=== PATIENT | male | born 1980 | race Caucasian/White ===

== ENCOUNTER 2017-11-23 13:34 | Emergency (ER) | payer SELFPAY ==
[2017-11-23 13:50] VITALS: BP 140/80
--- NOTE | 2017-11-23 14:49 | RADIOLOGY REPORT (SQ) ---
EXAM DESCRIPTION: ANKLE LEFT COMPLETE COMPLETED DATE/TIME: 11/23/2017 2:35 pm REASON FOR STUDY: left ankle injury 10days ago, lateral swelling COMPARISON: None. NUMBER OF VIEWS: Three views. TECHNIQUE: AP, lateral, and oblique radiographic images acquired of the left ankle. LIMITATIONS: None. FINDINGS: MINERALIZATION: Normal BONES: There is cortical irregularity in cortical interruption at the level of the distal tibia later ally in involving the distal fibula consistent with fractures. No other evidence for fracture is see n. JOINTS: No effusions. SOFT TISSUES: There is associated soft tissue swelling OTHER: No other significant finding. IMPRESSION: Fractures of the distal tibia and fibula as noted above TECHNICAL DOCUMENTATION: JOB ID: [id number] [employer] All Rights Reserved Reading location - IP/workstation name: [email or web address]
[2017-11-23] MEDS ORDERED: OXYCODONE-ACETAMINOPHEN 5-325 MG TABLET PO ONE (15:03)
--- NOTE | 2017-11-23 15:03 | ER Document Report ---
HPI - HPI Patient complains to provider of: left ankle pain Onset: Other - injury occurred 8 days ago. Quality of pain: Throbbing Severity: Severe Pain Level: 5 Context: States he jumped off a chair 8 days ago injuring his left ankle. Swelling has gone down some but is very painful to put any weight on that foot. Patient has not sought prior evaluation Associated Symptoms: None Exacerbated by: Movement, Walking Relieved by: Denies Similar symptoms previously: No Recently seen / treated by doctor: No - ROS ROS below otherwise negative: Yes Systems Reviewed and Negative: Yes All other systems reviewed and negative - NEURO Neurology: DENIES: Headache - CARDIOVASCULAR Cardiovascular: DENIES: Chest pain - RESPIRATORY Respiratory: DENIES: Trouble Breathing - GASTROINTESTINAL Gastrointestinal: DENIES: Abdominal Pain - MUSCULOSKELETAL Musculoskeletal: REPORTS: Extremity pain Notes: Left ankle - DERM Skin Color: Ecchymosis Skin Problems: None Past Medical History - General Information source: Patient - Social History Smoking Status: Current Every Day Smoker Cigarette use (# per day): Yes Frequency of alcohol use: Occasional Drug Abuse: None Lives with: Family Family History: Reviewed & Not Pertinent Neurological Medical History: Reports: Hx Seizures Psychiatric Medical History: Reports: Hx Anxiety, Hx Bipolar Disorder, Hx Depression Past Surgical History: Reports: Hx Oral Surgery, Hx Orthopedic Surgery - Immunizations Immunizations up to date: Yes Hx Diphtheria, Pertussis, Tetanus Vaccination: Yes Vertical Provider Document - CONSTITUTIONAL Agree With Documented VS: Yes Exam Limitations: No Limitations General Appearance: WD/WN, No Apparent Distress - INFECTION CONTROL TRAVEL OUTSIDE OF THE [place] IN LAST 30 DAYS: No - HEENT HEENT: Atraumatic, Normocephalic - RESPIRATORY Respiratory: Breath Sounds Normal, No Respiratory Distress - CARDIOVASCULAR Cardiovascular: Regular Rate, Regular Rhythm - MUSCULOSKELETAL/EXTREMETIES Musculoskeletal/Extremeties: Tender, Edema - Mild edema remains to left ankle. Bruising faint, Eccymosis Notes: Neurovascular and sensation is intact to left foot. - NEURO Level of Consciousness: Awake, Alert, Appropriate - DERM Integumentary: Warm, Dry Course - Re-evaluation Re-evalutation: 11/23/17 15:43 X-ray shows distal tib-fib fracture and this was discussed with the patient. Dr. Barron consulted and agrees with plan of splinting and following up with his office on Sunday morning patient is to call to schedule appointment. Relayed through operating room nurse as he was in surgery. - Vital Signs Vital signs: Temp Pulse Resp BP Pulse Ox 98.6 F 103 H 18 140/80 H 99 11/23/17 13:49 11/23/17 13:49 11/23/17 13:49 11/23/17 13:49 11/23/17 13:49 Procedures - Immobilization Left Ankle Pre-Proc Neuro Vasc Exam: Normal Immobilizer type: Short Leg Posterior - Crutches ordered in error, as patient already has them with him. Performed by: PCT Post-Proc Neuro Vasc Exam: Normal Alignment checked and good: Yes Discharge - Discharge Clinical Impression: Fracture tibia/fibula Qualifiers: Encounter type: initial encounter Fracture type: closed Laterality: left Qualified Code(s): S82.202A - Unspecified fracture of shaft of left tibia, initial encounter for closed fracture; S82.402A - Unspecified fracture of shaft of left fibula, initial encounter for closed fracture; S82.402A - Unspecified fracture of shaft of left fibula, initial encounter for closed fracture Condition: Good Disposition: HOME, SELF-CARE Instructions: Use of Crutches ([facility]), Ice & Elevation ([facility]), Oral Narcotic Medication ([facility]) Additional Instructions: OTC ibuprofen 3 times a day with food for pain, [place]-as needed Ice and elevate left Consulted Dr. Barron, orthopedics, who advised you call his office Sunday morning for appointment. Number has been provided on your paperwork return as needed Prescriptions: Hydrocodone/Acetaminophen [[place] 5-325 mg Tablet] 1 tab PO PRN PRN #15 tablet PRN Reason: Referrals: SERG BARRON, [ACTIVE STAFF] - Follow up as needed
== END 2017-11-23 16:00 | disposition home or self-care (01) ==
LOC: ER 13:34
PROC: 2W3RX1Z Immobilization of Left Lower Leg using Splint (ICD-10-PCS; principal; 2017-11-23)
DX: S82.402A Unspecified fracture of shaft of left fibula, initial encounter for closed fracture (principal); S82.202A Unspecified fracture of shaft of left tibia, initial encounter for closed fracture; M25.572 Pain in left ankle and joints of left foot; M79.89 Other specified soft tissue disorders; X58.XXXA Exposure to other specified factors, initial encounter; Y93.39 Activity, other involving climbing, rappelling and jumping off; F17.210 Nicotine dependence, cigarettes, uncomplicated
CPT/HCPCS: 99283

== ENCOUNTER 2020-09-03 03:37 | Emergency (ER) | payer MEDICAID ==
[2020-09-03 03:49] VITALS: BP 111/68
[2020-09-03 04:45] LABS: ABSOLUTE BASOPHILS # (AUTO) 0.1 10^3/uL (0.0-0.2); ABSOLUTE EOSINOPHILS # (AUTO) 0.2 10^3/uL (0.0-0.6); ABSOLUTE MONOCYTES (AUTO) 0.7 10^3/uL (0.1-1.4); ABSOLUTE NEUT (AUTO) 6.1 10^3/uL (1.7-8.2); BASOPHILS % (AUTO) 1.1 % (0-2); EOSINOPHILS % (AUTO) 2.6 % (0-6); HEMATOCRIT 37.7 % (37.9-51.0); LYMPHOCYTES % (AUTO) 21.6 % (13-45); MEAN CORPUSCULAR HGB CONC 34.4 g/dL (32.0-36.0); MEAN CORPUSCULAR VOLUME 85 fl (80-97); MONOCYTES % (AUTO) 7.8 % (3-13); PLATELET COUNT 322 10^3/uL (150-450); RED BLOOD COUNT 4.46 10^6/uL (4.35-5.55); RED CELL DISTRIBUTION WIDTH 13.1 % (11.5-14.0); SEGMENTED NEUTROPHILS % (AUTO) 66.9 % (42-78); TOTAL CELLS COUNTED % (AUTO) 100 %; WHITE BLOOD COUNT 9.1 10^3/uL (4.0-10.5)
[2020-09-03] MEDS ORDERED: CEPHALEXIN 500 MG CAPSULE PO ONE (05:02)
[2020-09-03] MEDS ORDERED: SULFAMETHOXAZOLE/TRIMETHOPRIM 800-160 MG TABLET PO ONE (05:02)
[2020-09-03] MEDS ORDERED: IBUPROFEN 600 MG TABLET PO ONE (05:02)
[2020-09-03 05:11] LABS: ALKALINE PHOSPHATASE 69 U/L (38-126); ANION GAP 7 (5-19); ASPARTATE AMINO TRANSFERASE 22 U/L (17-59); BILIRUBIN,DIRECT 0.2 mg/dL (0.0-0.4); BILIRUBIN,TOTAL 0.7 mg/dL (0.2-1.3); BLOOD UREA NITROGEN 20 mg/dL (7-20); CALCIUM 9.5 mg/dL (8.4-10.2); CARBON DIOXIDE 30 mmol/L (22-30); CHLORIDE 100 mmol/L (98-107); GLUCOSE 96 mg/dL (75-110); POTASSIUM 4.1 mmol/L (3.6-5.0); TOTAL PROTEIN 7.1 g/dL (6.3-8.2)
--- NOTE | 2020-09-03 06:56 | ER Document Report ---
ED Medical Screen (RME) - General Chief Complaint: Leg Pain Stated Complaint: LEG INFECTION/SWOLLEN KNEE DOWN Notes: 39-year-old male no significant past medical history presents with several days of pain in the right lower leg with few lesions that have been draining pus and pain around it. Patient denies any fever, immunocompromise history, IVDU, chest pain, shortness of breath. TRAVEL OUTSIDE OF THE [place] IN LAST 30 DAYS: No - Related Data Allergies/Adverse Reactions: No Known Allergies Allergy (Verified 09/03/20 03:57) Past Medical History - General Information source: Patient - Social History Frequency of alcohol use: None Drug Abuse: None Neurological Medical History: Reports: Hx Seizures Renal/ Medical History: Denies: Hx Peritoneal Dialysis Psychiatric Medical History: Reports: Hx Anxiety, Hx Bipolar Disorder, Hx Depression Past Surgical History: Reports: Hx Oral Surgery, Hx Orthopedic Surgery - Immunizations Immunizations up to date: Yes Hx Diphtheria, Pertussis, Tetanus Vaccination: Yes Review of Systems - Review of Systems Notes: No fever, no chills Physical Exam - Vital signs Vitals: Temp Pulse BP Pulse Ox 98.1 F 101 H 111/68 100 09/03/20 03:47 09/03/20 03:47 09/03/20 03:47 09/03/20 03:47 - Notes Notes: 30 skin disruptions on the right lower extremity 1 with slight pus draining, no fluctuance, diffuse lower leg edema Course - Re-evaluation Re-evalutation: 09/03/20 06:55 I have greeted and performed a rapid initial assessment of this patient. A comprehensive ED assessment and evaluation of the patient, analysis of test results and completion of medical decision making process will be conducted by additional ED providers. - Vital Signs Vital signs: Temp Pulse Resp BP Pulse Ox 98.1 F 101 H 111/68 100 09/03/20 03:47 09/03/20 03:47 09/03/20 03:47 09/03/20 03:47 - Laboratory Results Result Diagrams: 09/03/20 04:15 09/03/20 04:15 Laboratory Results Interpreted: 09/03/20 04:15 Hgb 13.0 L Hct 37.7 L
--- NOTE | 2020-09-03 10:00 | ER Document Report ---
Entered by INDRA PITT SCRIBE 09/03/20 0656 Acting as scribe for:EDU LAKHANI MD ED Extremity Problem, Lower - General Chief Complaint: Leg Pain Stated Complaint: LEG INFECTION/SWOLLEN KNEE DOWN Mode of Arrival: Ambulatory Information source: Patient Notes: This 39 year old male patient presents to the ED today with complaints of "infection in my leg." He states that the "infection" in his right lower leg started a couple of days ago. Denies injury or animal/insect bite. Denies any draining from the lesions or itchiness around the site. Denies fever, chills, or cough. Patient is somewhat uncooperative with the history and refuses to make eye contact, therefore HPI is limited. TRAVEL OUTSIDE OF THE [place] IN LAST 30 DAYS: No - Related Data Allergies/Adverse Reactions: No Known Allergies Allergy (Verified 09/03/20 03:57) Past Medical History - General Information source: [facility] Records - Social History Smoking Status: Current Every Day Smoker Smoking Education Provided: No Frequency of alcohol use: None Drug Abuse: Marijuana Lives with: Family Family History: Reviewed & Not Pertinent Neurological Medical History: Reports: Hx Seizures Psychiatric Medical History: Reports: Hx Anxiety, Hx Bipolar Disorder, Hx Depression Past Surgical History: Reports: Hx Oral Surgery, Hx Orthopedic Surgery - Immunizations Immunizations up to date: Yes Hx Diphtheria, Pertussis, Tetanus Vaccination: Yes Review of Systems - Review of Systems Constitutional: See HPI. denies: Chills, Fever EENT: No symptoms reported Cardiovascular: No symptoms reported Respiratory: See HPI. denies: Cough Gastrointestinal: No symptoms reported Genitourinary: No symptoms reported Male Genitourinary: No symptoms reported Musculoskeletal: No symptoms reported Skin: See HPI, Other - "infection in my leg" Hematologic/Lymphatic: No symptoms reported Neurological/Psychological: No symptoms reported -: Yes All other systems reviewed and negative Physical Exam - Vital signs Vitals: Temp Pulse BP Pulse Ox 98.1 F 101 H 111/68 100 09/03/20 03:47 09/03/20 03:47 09/03/20 03:47 09/03/20 03:47 - General General appearance: Other - Patient is sleeping and difficult to arouse. He is uncooperative with the exam and history and refuses to answer some questions. He did not make eye contact during the exam. In distress: None - HEENT Head: Normocephalic, Atraumatic Eyes: Normal Extraocular movements intact: Yes Pupils: PERRL Neck: Normal, Supple - Respiratory Respiratory status: No respiratory distress Chest status: Nontender Breath sounds: Normal Chest palpation: Normal - Cardiovascular Rhythm: Regular Heart sounds: Normal auscultation Murmur: No - Abdominal Inspection: Normal Distension: No distension Bowel sounds: Normal Tenderness: Nontender - Abdomen soft Organomegaly: No organomegaly - Back Back: Normal, Nontender - Extremities General upper extremity: Normal inspection General lower extremity: Other - There is right lower leg swelling. No pitting edema. There is a superficial base ulcer/coin lesion that is about x4 cm in diameter at the mid anterior tibia. There is another lesion at the anterior tibial tubercle that is dry and raised with mild erythema. No active draining from the sites. Calf: Nontender - Neurological Neuro grossly intact: Yes - Psychological Associated symptoms: Flat affect - Skin Skin Temperature: Warm Skin Moisture: Dry Skin Color: Normal Course - Re-evaluation Re-evalutation: 09/03/20 09:53 Patient resting comfortably not showing signs of distress at this time. - Vital Signs Vital signs: Temp Pulse Resp BP Pulse Ox 98.1 F 101 H 111/68 100 09/03/20 03:47 09/03/20 03:47 09/03/20 03:47 09/03/20 03:47 09/03/20 09:53 Vital signs shows a pulse of 101 otherwise stable pulse of 101 otherwise vital signs stable. - Laboratory Results Result Diagrams: 09/03/20 04:15 09/03/20 04:15 Laboratory Results Interpreted: 09/03/20 04:15 Hgb 13.0 L Hct 37.7 L 09/03/20 09:53 Laboratories within normal range. No critical labs Critical Laboratory Results Reviewed: No Critical Results - Radiology Results Radiology Results Interpreted: 09/03/20 09:54 Preliminary ultrasound of the lower extremity on the right looking for blood clots shows no evidence of SVT or DVT. Critical Radiology Results Reviewed: No Critical Results Discharge - Discharge Clinical Impression: Skin ulcer of right lower leg, Cellulitis of right leg Condition: Stable Disposition: HOME, SELF-CARE Additional Instructions: Cellulitis You have an infection of your skin and underlying soft tissues called cellulitis. This is due to bacteria, which can enter through any break in the skin, or even through an irritated hair follicle. Untreated, cellulitis will usually worsen. Antibiotics are required. Usually, warm packs or warm soaks, and elevation of the infected area are recommended. You should start getting better within 24 to 36 hours. Most infections respond quickly to the right medication. Follow-up care is important, however, to check for abscess (boil) formation, unsuspected foreign body, or resistant infection. If you develop fever, chills, or if the area of infection is becoming rapidly more swollen or painful, call the doctor at once. Prescriptions: Sulfamethoxazole/Trimethoprim [Bactrim Ds Tablet] 1 each PO BID #20 tablet Mupirocin [Bactroban 2% Ointment 22 gm] 1 applic TP TID #1 tube I personally performed the services described in the documentation, reviewed and edited the documentation which was dictated to the scribe in my presence, and it accurately records my words and actions.
--- NOTE | 2020-09-03 12:38 | RADIOLOGY REPORT (SQ) ---
EXAM DESCRIPTION: VENOUS UNILATERAL LOWER IMAGES COMPLETED DATE/TIME: 09/03/2020 12:20 pm REASON FOR STUDY: RLEE COMPARISON: None. TECHNIQUE: Dynamic and static snowden scale and color images acquired of the right leg venous system. S elected spectral images acquired with additional compression and augmentation maneuvers. The contrala teral common femoral vein and saphenofemoral junction were also imaged. Images stored on PACS. LIMITATIONS: None. FINDINGS: COMMON FEMORAL: Normal phasicity, compression and augmentation. No visualized echogenic ma terial on snowden scale. No defects on color images. FEMORAL: Normal compression and augmentation. No visualized echogenic material on snowden scale. No defe cts on color images. POPLITEAL: Normal compression, augmentation. No visualized echogenic material on snowden scale. No defec ts on color images. CALF VESSELS: Normal compression, augmentation. No visualized echogenic material on snowden scale. No de fects on color images. GSV and SSV: Normal compression, augmentation. No visualized echogenic material on snowden scale. No def ects on color images. ANY DEEP VENOUS INSUFFICIENCY: No. ANY EVIDENCE OF POPLITEAL CYST: No. OTHER: No other finding. CONTRALATERAL COMMON FEMORAL VEIN AND SAPHENOFEMORAL JUNCTION: Normal phasicity, compression and augmentation. No visualized echogenic material on snowden scale. No de fects on color images. IMPRESSION: NO EVIDENCE OF DVT OR SVT IN THE RIGHT LEG. TECHNICAL DOCUMENTATION: JOB ID: [id number] [employer]- All Rights Reserved Reading location - IP/workstation name: [email or web address]
== END 2020-09-03 10:30 | disposition home or self-care (01) ==
LOC: ER 03:37
DX: L03.115 Cellulitis of right lower limb (principal); L97.219 Non-pressure chronic ulcer of right calf with unspecified severity; F17.200 Nicotine dependence, unspecified, uncomplicated; F12.10 Cannabis abuse, uncomplicated
CPT/HCPCS: 99284; 36415; 87040; 83605; 85025; 87077; 80053; 87150 ×26; 93971; J3490 ×2; 87186